=== PATIENT | male | born 1990 | race Caucasian/White ===

== ENCOUNTER 2022-09-03 09:08 | Emergency (ER) | payer OTHER, SELFPAY ==
[2022-09-03 09:12] VITALS: BP 165/96; PULSE 93; RESP 15; TEMP 36.8; O2SAT 100; BMI 24.3
[2022-09-03 09:35] LABS: Add Manual Diff / Slide Review NO; Basophils Absolute Auto 0 /uL (0-100); Basophils Percent Auto 0.5 % (0-2); Eosinophils Absolute Auto 0 /uL (0-450); Eosinophils Percent Auto 0.6 % (2-4); Hematocrit 44.3 % (41-53); Hemoglobin 14.7 g/dL (13.5-17.5); Lymphocytes Absolute Auto 1100 /uL (1100-4500); Lymphocytes Percent Auto 17.9 % (25-40); Mean Corpuscular HGB Conc 33.1 % (30-36); Mean Corpuscular Hemoglobin 30.4 PG (26-34); Mean Corpuscular Volume 91.8 fL (80-100); Monocytes Absolute Auto 400 /uL (0-900); Monocytes Percent Auto 6.2 % (3-14); Neutrophils Absolute Auto 4800 /uL (1500-7000); Neutrophils Percent Auto 74.8 % (50-75); Platelet Count 284 X10^3/uL (150-400); Red Blood Cell Count 4.83 X10^6/uL (4.5-5.9); Red Cell Distribution Width 13.6 % (11.6-14.8); White Blood Cell Count 6.4 X10^3/uL (4.5-11.0)
[2022-09-03 09:47] LABS: Alanine Aminotransferase 42 IU/L (<50); Albumin 4.6 g/dL (3.5-5.0); Albumin Globulin Ratio 1.6 (1.0-2.8); Alkaline Phosphatase 64 U/L (38-126); Aspartate Aminotransferase 34 IU/L (17-59); BUN Creatinine Ratio 11.4 (6-22); Bilirubin Total 0.5 mg/dL (0.2-1.3); Blood Urea Nitrogen 14 mg/dL (9-20); Calcium 9.5 mg/dL (8.4-10.2); Carbon Dioxide 31 mmol/L (22-32); Chloride 101 mmol/L (98-107); Estimated Glomerular Filt Rate > 60 mL/min (>60); Globulin 2.8 g/dL (1.7-4.1); Glucose 84 mg/dL (70-100); HEMOLYSIS < 15 (0-50); Lipase 233 U/L (23-300); Potassium 4.2 mmol/L (3.4-5.1); Sodium 139 mmol/L (137-145); Total Protein 7.4 g/dL (6.3-8.2)
--- NOTE | 2022-09-03 10:40 | ED_ITS ---
HPI - Abdominal Pain <Tatiana Bradley PA-C - Last Filed: 09/03/22 10:52> General Chief Complaint: Abdominal Pain Stated Complaint: ABD pain Time Seen by Provider: 09/03/22 10:19 Source: patient Mode of arrival: Ambulatory History of Present Illness HPI narrative: 32-year-old male presents with concern for abdominal pain that has been intermittent and crampy since yesterday when he was preparing dinner in the e vening. Patient states he did eat ?bunch of ice cream? prior to his pain beginning and prior to dinner and that he has lactose intolerance and does not do well when he eats ice cream. Does state typically when he has lactose intolerance symptoms his pain does not last as long as this pain has. He states he did eat some breakfast this morning and has not had as much flatulence in the last 12-18 hours as he typically does after having lactose but when he went to work this morning he realized was too uncomfortable to work and came in for further evaluation. States his pain has been up to a 7/10 at times and right now is about a 3/10. He does feel when he had breakfast this morning it seemed to make his pain a little bit worse. He says it is generalized abdominal pain but sometimes he feels like it is more on the right side up high. He has never had a problem with pain in this area before. He denies nausea or vomiting although states ?after I had some Pepto-Bismol this morning I did have some dry heaving?. Patient states he typically has 2 bowel movements a day his last bowel movement was yesterday late morning and it was normal for him. Denies any fevers chills diarrhea constipation body aches, chest pain, dysuria, flank pain, shortness of breath or any other symptoms. States he has been otherwise in his usual state of health. He works doing [employer]. Related Data Allergies Allergy/AdvReac Type Severity Reaction Status Date / Time No Known Drug Allergies Allergy Verified 09/03/22 09:12 Review of Systems <Tatiana Bradley PA-C - Last Filed: 09/03/22 10:52> Review of Systems Narrative: See HPI Patient History <Tatiana Bradley PA-C - Last Filed: 09/03/22 10:52> Social History Smoking Status: Unknown if ever smoked Smoking Status: Unknown if ever smoked alcohol intake frequency: 0-2 drinks per day Substance Use Type: does not use Exam <Tatiana Bradley PA-C - Last Filed: 09/03/22 10:52> Narrative Exam Narrative: GENERAL: 32 year old patient appears stated age. Well-developed patient, in mild distress. HEAD: Atraumatic. Normocephalic. EYES: Pupils equal round and reactive. Extraocular motions intact. No scleral icterus. No injection or drainage. ENT: Nose without bleeding, purulent drainage. Airway patent. NECK: Trachea midline. CARDIOVASCULAR: Regular rate and rhythm without murmurs, gallops, or rubs. RESPIRATORY: Clear to auscultation. Breath sounds equal bilaterally. No wheezes, rales, or rhonchi. GASTROINTESTINAL: Abdomen soft, there is very slight right upper quadrant tend erness, negative Gurrola's sign, otherwise very mild generalized discomfort on abdominal palpation without tenderness, nondistended, no CVA tenderness. EXTREMITIES: No edema or joint tenderness. BACK: Nontender without deformity or crepitance. No flank tenderness. NEURO: AOx3. SKIN: No rash or erythema of visible areas Initial Vital Signs Initial Vital Signs: Vital Signs Temperature 98.2 F 09/03/22 09:12 Pulse Rate 93 H 09/03/22 09:12 Respiratory Rate 15 09/03/22 09:12 Blood Pressure 165/96 H 09/03/22 09:12 Pulse Oximetry 100 09/03/22 09:12 Oxygen Delivery Method Room Air 09/03/22 09:12 <Vijaya Damico DO - Last Filed: 09/03/22 18:57> Initial Vital Signs Initial Vital Signs: Vital Signs Temperature 98.2 F 09/03/22 09:12 Pulse Rate 93 H 09/03/22 09:12 Respiratory Rate 15 09/03/22 09:12 Blood Pressure 165/96 H 09/03/22 09:12 Pulse Oximetry 100 09/03/22 09:12 Oxygen Delivery Method Room Air 09/03/22 09:12 Course <Tatiana Brdaley PA-C - Last Filed: 09/03/22 10:52> Orders Ordered: Discontinued Medications Ondansetron HCl (Ondansetron 4 Mg Odt) 4 mg PO NOW PRN PRN Reason: Nausea And Vomiting Ondansetron HCl (Ondansetron 4 Mg/2 Ml Inj) 4 mg IV NOW PRN PRN Reason: Nausea And Vomiting Vital Signs Vital signs: Vital Signs - 8 hr 09/03/22 09:12 Temperature 98.2 F Pulse Rate 93 H Respiratory Rate 15 Blood Pressure 165/96 H Pulse Oximetry 100 Oxygen Delivery Method Room Air <Vijaya Damico DO - Last Filed: 09/03/22 18:57> Orders Ordered: Discontinued Medications Ondansetron HCl (Ondansetron 4 Mg Odt) 4 mg PO NOW PRN PRN Reason: Nausea And Vomiting Ondansetron HCl (Ondansetron 4 Mg/2 Ml Inj) 4 mg IV NOW PRN PRN Reason: Nausea And Vomiting Vital Signs Vital signs: Vital Signs - 8 hr 09/03/22 09:12 Temperature 98.2 F Pulse Rate 93 H Respiratory Rate 15 Blood Pressure 165/96 H Pulse Oximetry 100 Oxygen Delivery Method Room Air MDM - Abdominal Pain <Tatiana Bradley PA-C - Last Filed: 09/03/22 10:52> Differential Diagnosis Differential diagnosis: Likely abdominal pain, acute appendicitis, constipation, gastroenteritis and other (Lactose intolerance, food poisoning) Medical Records Attestation: I reviewed the patient's medical records. Lab Data Attestation: I reviewed the patient's lab results. 09/03/22 06:20 09/03/22 06:20 Labs: Lab Results 09/03/22 09/03/22 Range/Units 06:20 06:20 WBC 6.4 (4.5-11.0) X10^3/uL RBC 4.83 (4.5-5.9) X10^6/uL Hgb 14.7 (13.5-17.5) g/dL Hct 44.3 (41-53) % MCV 91.8 (80-100) fL MCH 30.4 (26-34) PG MCHC 33.1 (30-36) % RDW 13.6 (11.6-14.8) % Plt Count 284 (150-400) X10^3/uL Neut % (Auto) 74.8 (50-75) % Lymph % (Auto) 17.9 L (25-40) % Stanton % (Auto) 6.2 (3-14) % Eos % (Auto) 0.6 L (2-4) % Baso % (Auto) 0.5 (0-2) % Neut # (Auto) 4800 (9518-9816) /uL Lymph # (Auto) 1100 (8102-4747) /uL Stanton # (Auto) 400 (0-900) /uL Eos # (Auto) 0 (0-450) /uL Baso # (Auto) 0 (0-100) /uL Sodium 139 (137-145) mmol/L Potassium 4.2 (3.4-5.1) mmol/L Chloride 101 (98-107) mmol/L Carbon Dioxide 31 (22-32) mmol/L BUN 14 (9-20) mg/dL Creatinine 1.23 (0.66-1.25) mg/dL Estimated GFR > 60 (>60) mL/min BUN/Creatinine Ratio 11.4 (6-22) Glucose 84 (70-100) mg/dL Calcium 9.5 (8.4-10.2) mg/dL Total Bilirubin 0.5 (0.2-1.3) mg/dL AST 34 (17-59) IU/L ALT 42 (<50) IU/L Alkaline Phosphatase 64 (38-126) U/L Total Protein 7.4 (6.3-8.2) g/dL Albumin 4.6 (3.5-5.0) g/dL Globulin 2.8 (1.7-4.1) g/dL Albumin/Globulin Ratio 1.6 (1.0-2.8) Lipase 233 (23-300) U/L Point of care testing: Urine Dip Bedside Urine Glucose Negative Bedside Urine Bilirubin - Negative Bedside Urine Ketone - Negative Urine Specific Moon 1.015 Bedside Urine Occult Blood - Negative Bedside Urine pH 6.0 Bedside Urine Protein - Negative Bedside Urine Urobilinogen - Negative Bedside Urine Nitrite - Negative Bedside Urine Leukocytes - Negative Esterase Treatment and Disposition Shared decision making:: Shared decision-making was used in discussing patient's potential etiologies of symptoms as well as plan for further workup in the emergency department versus monitoring at home with return precautions. Patient and his partner ultimately prefer and are comfortable with heading home without further workup today. MDM Narrative Medical decision making narrative: This is a generally well-appearing 32-year-old male with a history of lactose intolerance who presents with concern for generalized abdominal discomfort with crampy pain since yesterday evening while making dinner. Pain started after eating a lot of ice cream and patient typically has crampy abdominal pain after eating ice cream though not does not typically last this long. Patient's exam is fairly unremarkable he does have some slight right upper quadrant tenderness and gallbladder liver etiology is considered however his labs are not suggestive of this, his lipase is also not elevated, he does not have leukocytosis, LFTs are in the normal range and his urine is also unremarkable. Discussed options with the patient including possibly pursuing a right upper quadrant ultrasound for further evaluation versus heading home with strict return precautions as it is possible that this pain represents an early appendicitis or other intra- abdominal process that will require further intervention or evaluation. 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 He understands that if he develops a fever, has persistent pain or worsening pain or new symptoms of concern he should immediately come back for further evaluation and a recheck. Otherwise patient will work on hydration and having a bowel movement as he has had no bowel movement for last 24 hours which is somewhat atypical for him. Return precautions, ED precautions provided, follow-up plan discussed, all questions answered. <Vijaya Damico, DO - Last Filed: 09/03/22 18:57> Lab Data Labs: Lab Results 09/03/22 09/03/22 Range/Units 06:20 06:20 WBC 6.4 (4.5-11.0) X10^3/uL RBC 4.83 (4.5-5.9) X10^6/uL Hgb 14.7 (13.5-17.5) g/dL Hct 44.3 (41-53) % MCV 91.8 (80-100) fL MCH 30.4 (26-34) PG MCHC 33.1 (30-36) % RDW 13.6 (11.6-14.8) % Plt Count 284 (150-400) X10^3/uL Neut % (Auto) 74.8 (50-75) % Lymph % (Auto) 17.9 L (25-40) % Stanton % (Auto) 6.2 (3-14) % Eos % (Auto) 0.6 L (2-4) % Baso % (Auto) 0.5 (0-2) % Neut # (Auto) 4800 (1606-9047) /uL Lymph # (Auto) 1100 (2656-3177) /uL Stanton # (Auto) 400 (0-900) /uL Eos # (Auto) 0 (0-450) /uL Baso # (Auto) 0 (0-100) /uL Sodium 139 (137-145) mmol/L Potassium 4.2 (3.4-5.1) mmol/L Chloride 101 (98-107) mmol/L Carbon Dioxide 31 (22-32) mmol/L BUN 14 (9-20) mg/dL Creatinine 1.23 (0.66-1.25) mg/dL Estimated GFR > 60 (>60) mL/min BUN/Creatinine Ratio 11.4 (6-22) Glucose 84 (70-100) mg/dL Calcium 9.5 (8.4-10.2) mg/dL Total Bilirubin 0.5 (0.2-1.3) mg/dL AST 34 (17-59) IU/L ALT 42 (<50) IU/L Alkaline Phosphatase 64 (38-126) U/L Total Protein 7.4 (6.3-8.2) g/dL Albumin 4.6 (3.5-5.0) g/dL Globulin 2.8 (1.7-4.1) g/dL Albumin/Globulin Ratio 1.6 (1.0-2.8) Lipase 233 (23-300) U/L Point of care testing: Urine Dip Bedside Urine Glucose Negative Bedside Urine Bilirubin - Negative Bedside Urine Ketone - Negative Urine Specific Moon 1.015 Bedside Urine Occult Blood - Negative Bedside Urine pH 6.0 Bedside Urine Protein - Negative Bedside Urine Urobilinogen - Negative Bedside Urine Nitrite - Negative Bedside Urine Leukocytes - Negative Esterase Discharge Plan Departure Patient Disposition: Home Clinical Impression: Abdominal pain Activity Restrictions/Additional Instructions: *You have been diagnosed with [abdominal pain] *What to do: *Please continue to take your regular medications as directed. [ ] New medication prescriptions sent to your pharmacy: [ ] [ ] New medication written as a paper prescription [* ] No new medications given *Please follow up with your primary care provider in 2-3 days, call for an appointment. Let them know you were seen in the Emergency Department and that we ask that you be seen in follow up. We will electronically transmit a record of today's note if your PCP is in our system. Your labs today looked very good, as we discussed there is always a possibility with abdominal pain that it is simply early in the process and we do not see laboratory changes, however I think it is also quite likely that your symptoms are due to the large amount of ice cream UA yesterday given UR lactose intolerant and have had problems with this in the past, it will be important to carefully monitor your symptoms at home, if you develop persistent or worsening pain, vomiting, diarrhea, fevers chills or other symptoms that are concerning or feel you are worsening please do not hesitate to come back for re-evaluation and a recheck. We did not do imaging today in the emergency department after discussion. Please work on hydration and try to eat a simple diet with foods such as bananas rice applesauce and toast. *If you do not have a primary care provider please contact the [facility] Resource line at [phone]. They will ask some questions about your medical history and help get you set up with a doctor in the community. *Return to Emergency Department if you should have any new, worsening or concer michelle symptoms, such as [fever greater than 101 F, shaking chills, worsening pain, persistent vomiting or other bothersome symptoms] Stand Alone Forms: Patient Portal/API, Work Release Note <Vijaya Damico DO - Last Filed: 09/03/22 18:57> Cosign ED Attending Leidaature Attestation: I was immediately available in the department for consultation. Documentation has been reviewed.
== END 2022-09-03 10:53 | disposition home or self-care (01) ==
PROVIDERS: Emergency Medicine; Emergency Provider Student in an Organized Health Care Education/Training Program
DX: R10.9 Unspecified abdominal pain (principal)
CPT/HCPCS: 36415; 80053; 81003; 83690; 85025; 99283